=== PATIENT | male | born 1985 | race Hispanic/Latino ===

== ENCOUNTER 2019-04-04 12:21 | Inpatient (IN) | payer MEDICAID ==
[~2019-04-04] VITALS: Ht 170.2 cm; Wt 71.8 kg
[~2019-04-04 12:21] MED LIST: BACTRIM DS TAB1 EAC1 ORAL; BACTRIM-DS1 EA ORAL; CLINDAMYCIN HC300 MG ORAL; KEFLEX500 MG ORAL; NKM
--- NOTE | 2019-04-04 12:28 | NUR ---
SHANICE Nurse Note: PT. BROUGHT IN BY RA [address] PER EMS. PT HAS CP X 1 HR PRIOR TO ER ARRIVAL. PER EMS, THEY DID NOT ADMNISTER ANY MEDS EN ROUTE TO ER. PT. IS AAOX4. AMBULATORY. PT. POINTED HIS L CHEST WHEN ASKED WHERE HIS PAIN AT. NO S/S OF ACUTE DISTRESS NOTED AT THIS TIME. PT. ATTACHED TO CARDIAC MONITORING FOR CONTINUOUS MONITORING.
[2019-04-04] MEDS ORDERED: Ketorolac 30mg Inj IV ONE (12:30)
--- NOTE | 2019-04-04 12:30 | NUR ---
ED Nurse Note: PT IS NOTED TO BE HAVINNG MULTIPLE LUMPS ALL OVER HIS BODY
[2019-04-04 12:40] VITALS: BP 162/80
--- NOTE | 2019-04-04 12:45 | NUR ---
ED Nurse Note: CXR AT THE BEDSIDE
[2019-04-04 13:04] LABS: BASOPHILS % (AUTO) 1.3 % (0.0-2.0); EOSINOPHILS % (AUTO) 0.8 % (0.0-3.0); HEMATOCRIT 42.8 % (42.0-52.0); HEMOGLOBIN 14.1 G/DL (14.2-18.0); LYMPHOCYTES % (AUTO) 9.9 % (20.0-45.0); MEAN CORPUSCULAR VOLUME 84 FL (80-99); MONOCYTES % (AUTO) 11.7 % (1.0-10.0); NEUTROPHILS % (AUTO) 76.4 % (45.0-75.0); PLATELET COUNT 223 K/UL (150-450); RED BLOOD COUNT 5.06 M/UL (4.70-6.10); RED CELL DISTRIBUTION WIDTH 12.8 % (11.6-14.8); WHITE BLOOD COUNT 4.6 K/UL (4.8-10.8)
[2019-04-04 13:15] LABS: INR 1.1 (0.9-1.1)
[2019-04-04] MEDS ORDERED: Tubing IV Secondary IV ONE (13:16)
[2019-04-04] MEDS ORDERED: NS 275ml ONE (13:16)
[2019-04-04 13:20] LABS: ANION GAP 8 mmol/L (5-15); BLOOD UREA NITROGEN 15 mg/dL (7-18); CALCIUM 9.3 MG/DL (8.5-10.1); CARBON DIOXIDE 31 MMOL/L (21-32); CHLORIDE 102 MMOL/L (98-107); CREATININE 0.9 MG/DL (0.55-1.30); POTASSIUM 4.1 MMOL/L (3.5-5.1); SODIUM 141 MMOL/L (136-145)
[2019-04-04 13:32] LABS: ALANINE AMINOTRANSFERASE 27 U/L (12-78); ALBUMIN 3.7 G/DL (3.4-5.0); ALBUMIN/GLOBULIN RATIO 0.9 (1.0-2.7); ALKALINE PHOSPHATASE 82 U/L (46-116); ASPARTATE AMINO TRANSFERASE 29 U/L (15-37); BILIRUBIN,TOTAL 0.7 MG/DL (0.2-1.0); CREATINE KINASE 358 U/L (26-308)
--- NOTE | 2019-04-04 13:43 | NUR ---
ED Nurse Note: pt screaming out for Lt side chest pain. ERMD at bedside.
[2019-04-04] MEDS ORDERED: Morphine Sulfate 4mg/ml Inj (IV USE ONLY) IVP ONE (13:45)
[2019-04-04] MEDS ORDERED: DiphenhydrAMINE 50mg/ml Inj IVP ONE (13:45)
[2019-04-04] MEDS ORDERED: Metoclopramide 10mg/2ml Inj IVP ONE (13:45)
[2019-04-04 13:53] LABS: APPEARANCE,URINE CLEAR; BILIRUBIN, URINE NEGATIVE (NEGATIVE); GLUCOSE, URINE (UA) NEGATIVE (NEGATIVE); KETONES,URINE 1+ (NEGATIVE); LEUKOCYTE ESTERASE ,URINE 1+ (NEGATIVE); NITRITE,URINE NEGATIVE (NEGATIVE); PH,URINE 7 (4.5-8.0); PROTEIN,URINE 2+ (NEGATIVE); UROBILINOGEN,URINE NORMAL MG/DL (0.0-1.0)
[2019-04-04 13:54] LABS: COLOR,URINE YELLOW
[2019-04-04] MEDS ORDERED: Cefepime HCl 1 GM in D5W 55 ML IVPB ONE (14:00)
[2019-04-04] MEDS ORDERED: Vancomycin 1 GM in NS 275 ML IVPB ONE (14:00)
--- NOTE | 2019-04-04 14:26 | Diagnostic Imaging Report ---
Indication: Chest pain Technique: One view of the chest Comparison: none Findings: Lungs and pleural spaces are clear. Heart size is normal. Impression: No acute process
[2019-04-04 14:40] VITALS: BP 122/64
--- NOTE | 2019-04-04 15:06 | Emergency Room Report ---
History of Present Illness General Chief Complaint: Chest Pain Source: Patient, EMS Present Illness HPI Patient is brought by EMS. He summoned them because he was having left-sided chest pain. He says he is never had this pain before. It severe pressure and sharp left lateral chest. He denies it being pleuritic. He denies any trauma. He has been having chills but not documented any fevers. Pain level reported 4/10. The patient shoots methamphetamine. He also smokes THC. In the past he is used heroin also. He has been seen in the past with abscesses and drug abuse. He is uncertain if he has hepatitis C or HIV. Patient denies suicidal or homicidal ideation. No sore throat, palpitations, diarrhea, melena, dysuria, abdominal pain, shortness of breath, joint pain, visual changes, dizziness, headache. Allergies: Coded Allergies: No Known Allergies (Unverified , 12/29/12) Patient History Past Medical History: see triage record Social History: Reports: smoking, drug use - Heroin, methamphetamine Social History Narrative Not working -according to paramedics patient is homeless. Reviewed Nursing Documentation: PMH: Agreed; PSxH: Agreed Nursing Documentation-PMH Past Medical History: No Stated History Review of Systems All Other Systems: negative except mentioned in HPI Physical Exam Vital Signs Date Time Temp Pulse Resp B/P (MAP) Pulse Ox O2 Delivery O2 Flow Rate FiO2 04/04/19 12:15 97.9 114 19 162/80 (107) 99 04/04/19 12:21 Room Air Sp02 EP Interpretation: reviewed, normal General Appearance: alert, mild distress, thin Head: normocephalic, atraumatic Eyes: bilateral eye PERRL, bilateral eye EOMI, bilateral eye Scleral Injection ENT: moist mucus membranes Neck: full range of motion, supple, no meningismus Respiratory: chest non-tender, lungs clear, normal breath sounds Cardiovascular #1: regular rate, rhythm, no murmur, no rub, other - swelling UE Cardiovascular #2: 2+ radial (R), 2+ radial (L) Gastrointestinal: non tender, decreased bowel sounds, scaphoid Genitourinary: no CVA tenderness Musculoskeletal: back normal, tender - foreams, swelling - forearms Neurologic: alert, distal neuro normal, grossly normal Psychiatric: anxious Skin: other - Multiple abscesses and track hyl[place] with erythema more of L antecubital area Medical Decision Making Diagnostic Impression: Primary Impression: Chest pain Qualified Codes: R07.9 - Chest pain, unspecified Additional Impressions: Cellulitis Abscess Substance abuse ER Course Patient presents with obvious skin infections from IV drug use with chest pain. Differential includes acute myocardial infarction, pericarditis, subacute bacterial endocarditis, PE, septic embolus amongst others. Patient evaluated with EKG, chest x-ray and labs. Lactate and blood cultures performed. Patient treated for pain. We will have a low threshold for treating with IV antibiotics. EKG sinus tachycardia no acute changes. Chest x-ray no infiltrates. White count normal. Sed rate elevated. C-reactive protein elevated. Urine positive for opiates and amphetamines. Lactic acid normal. Patient started having increased episodes of pain. Treated with Reglan, Benadryl and morphine. Antibiotics begun to cover skin bacteria. Patient admitted to the hospital for observation and possibly longer course of IV antibiotics. Consider echocardiogram to exclude subacute bacterial endocarditis. Laboratory Tests Test 04/04/19 12:52 04/04/19 13:30 White Blood Count 4.6 K/UL (4.8-10.8) L Red Blood Count 5.06 M/UL (4.70-6.10) Hemoglobin 14.1 G/DL (14.2-18.0) L Hematocrit 42.8 % (42.0-52.0) Mean Corpuscular Volume 84 FL (80-99) Mean Corpuscular Hemoglobin 27.9 PG (27.0-31.0) Mean Corpuscular Hemoglobin Concent 33.0 G/DL (32.0-36.0) Red Cell Distribution Width 12.8 % (11.6-14.8) Platelet Count 223 K/UL (150-450) Mean Platelet Volume 7.2 FL (6.5-10.1) Neutrophils (%) (Auto) 76.4 % (45.0-75.0) H Lymphocytes (%) (Auto) 9.9 % (20.0-45.0) L Monocytes (%) (Auto) 11.7 % (1.0-10.0) H Eosinophils (%) (Auto) 0.8 % (0.0-3.0) Basophils (%) (Auto) 1.3 % (0.0-2.0) Erythrocyte Sedimentation Rate 19 MM/HR (0-15) H Prothrombin Time 11.4 SEC (9.30-11.50) Prothrombin Time INR 1.1 (0.9-1.1) PTT 30 SEC (23-33) Sodium Level 141 MMOL/L (136-145) Potassium Level 4.1 MMOL/L (3.5-5.1) Chloride Level 102 MMOL/L (98-107) Carbon Dioxide Level 31 MMOL/L (21-32) Anion Gap 8 mmol/L (5-15) Blood Urea Nitrogen 15 mg/dL (7-18) Creatinine 0.9 MG/DL (0.55-1.30) Estimate Glomerular Filtration Rate > 60 mL/min (>60) Glucose Level 103 MG/DL (74-106) Lactic Acid Level 1.30 mmol/L (0.4-2.0) Calcium Level 9.3 MG/DL (8.5-10.1) Magnesium Level 1.6 MG/DL (1.8-2.4) L Total Bilirubin 0.7 MG/DL (0.2-1.0) Aspartate Amino Transferase (AST) 29 U/L (15-37) Alanine Aminotransferase (ALT) 27 U/L (12-78) Alkaline Phosphatase 82 U/L (46-116) Total Creatine Kinase 358 U/L (26-308) H Troponin I 0.000 ng/mL (0.000-0.056) C-Reactive Protein, Quantitative 4.5 mg/dL (0.00-0.90) H Pro-B-Type Natriuretic Peptide 105 pg/mL (0-125) Total Protein 8.0 G/DL (6.4-8.2) Albumin 3.7 G/DL (3.4-5.0) Globulin 4.3 g/dL Albumin/Globulin Ratio 0.9 (1.0-2.7) L Lipase 100 U/L (73-393) Serum Alcohol < 3 mg/dL Urine Color Yellow Urine Appearance Clear Urine pH 7 (4.5-8.0) Urine Specific [place] 1.010 (1.005-1.035) Urine Protein 2+ (NEGATIVE) H Urine Glucose (UA) Negative (NEGATIVE) Urine Ketones 1+ (NEGATIVE) H Urine Blood Negative (NEGATIVE) Urine Nitrite Negative (NEGATIVE) Urine Bilirubin Negative (NEGATIVE) Urine Urobilinogen Normal MG/DL (0.0-1.0) Urine Leukocyte Esterase 1+ (NEGATIVE) H Urine RBC 0 /HPF (0 - 0) Urine WBC 2-4 /HPF (0 - 0) Urine Squamous Epithelial Cells Occasional /LPF Urine Bacteria Occasional /HPF (NONE) Urine Sperm Few /LPF (NONE) Urine Opiates Screen Positive (NEGATIVE) H Urine Barbiturates Screen Negative (NEGATIVE) Phencyclidine (PCP) Screen Negative (NEGATIVE) Urine Amphetamines Screen Positive (NEGATIVE) H Urine Benzodiazepines Screen Negative (NEGATIVE) Urine Cocaine Screen Negative (NEGATIVE) Urine Marijuana (THC) Screen Negative (NEGATIVE) EKG Diagnostic Results Rate: tachycardiac Rhythm: NSR ST Segments: no acute changes Rhythm Strip Diag. Results EP Interpretation: yes Rhythm: no PVC's, no ectopy, other - Sinus tachycardia Chest X-Ray Diagnostic Results Chest X-Ray Diagnostic Results : Chest X-Ray Ordered: Yes # of Views/Limited/Complete: 1 View Indication: Chest Pain EP Interpretation: Yes Interpretation: no consolidation, no effusion, no pneumothorax Impression: No acute disease Electronically Signed by: Electronically signed by Terrance Ashton MD Last Vital Signs Date Time Temp Pulse Resp B/P (MAP) Pulse Ox O2 Delivery O2 Flow Rate FiO2 04/04/19 17:44 Room Air 04/04/19 17:00 98.8 77 17 110/65 (80) 97 Status: improved Disposition: PLACE IN OBSERVATION Condition: Serious Scripts No Active Prescriptions or Reported Meds Referrals: NOT CHOSEN IPA/,REFERRING (PCP) Terrance Ashton MD Apr 04, 2019 15:06
--- NOTE | 2019-04-04 15:48 | NUR ---
ED Nurse Note: per registration, pt is not homeless.
--- NOTE | 2019-04-04 15:50 | NUR ---
ED Nurse Note: report given to JANEL Carlos
--- NOTE | 2019-04-04 16:09 | NUR ---
ED Nurse Note: pt left unit with 1 telemetry technician in stable condition.
--- NOTE | 2019-04-04 16:34 | NUR ---
NURSE NOTES: Patient is on the floor. Vitals stable.
[2019-04-04 17:00] VITALS: BP 110/65
--- NOTE | 2019-04-04 19:32 | NUR ---
HAND-OFF: Report given to JANEL Diaz.
--- NOTE | 2019-04-04 19:40 | NUR ---
NURSE NOTES: Pt. received from JANEL Carlos. Pt. AAOx4, on room air, no complaint of pain, no shortness of breath or indication of respiratory distress. Bed is low and locked, side rails x2 are up, and call light is in reach. Will continue to monitor.
[2019-04-04 20:00] VITALS: BP 119/65
[2019-04-04] MEDS: Heparin 5000 units/ml inj SUBQ SCH (20:45)
[2019-04-04] MEDS: Vancomycin 750mg/NS 275ml IVPB SCH ×2 (22:53)
[2019-04-04] MEDS: Piperacillin/Tazobactam 3.375 GM in NS 110 ML IVPB SCH (22:53)
[2019-04-05] VITALS: BP 120/67
[2019-04-05 04:00] VITALS: BP 119/72
[2019-04-05] MEDS: Piperacillin/Tazobactam 3.375 GM in NS 110 ML IVPB SCH ×2 (05:02→14:16)
[2019-04-05 07:11] LABS: BASOPHILS % (AUTO) 3.1 % (0.0-2.0); EOSINOPHILS % (AUTO) 0.5 % (0.0-3.0); HEMOGLOBIN 12.8 G/DL (14.2-18.0); LYMPHOCYTES % (AUTO) 21.9 % (20.0-45.0); MEAN CORPUSCULAR VOLUME 83 FL (80-99); MONOCYTES % (AUTO) 13.3 % (1.0-10.0); NEUTROPHILS % (AUTO) 61.3 % (45.0-75.0); PLATELET COUNT 153 K/UL (150-450); RED BLOOD COUNT 4.57 M/UL (4.70-6.10); RED CELL DISTRIBUTION WIDTH 13.2 % (11.6-14.8); WHITE BLOOD COUNT 4.5 K/UL (4.8-10.8)
[2019-04-05 07:12] LABS: ANION GAP 10 mmol/L (5-15); BLOOD UREA NITROGEN 15 mg/dL (7-18); CARBON DIOXIDE 26 MMOL/L (21-32); CHLORIDE 106 MMOL/L (98-107); POTASSIUM 3.9 MMOL/L (3.5-5.1); SODIUM 142 MMOL/L (136-145)
--- NOTE | 2019-04-05 07:26 | NUR ---
HAND-OFF: Report given to JANEL Carlos.
--- NOTE | 2019-04-05 07:35 | NUR ---
NURSE NOTES: Received patient on bed, awake. IV site intact and patent. Bed in low and locked position, call light in reach. No respiratory distress, patient denies pain. Room board updated, will continue to monitor.
[2019-04-05 08:00] VITALS: BP 114/63
[2019-04-05] MEDS: Vancomycin 750mg/NS 275ml IVPB SCH ×2 (08:58)
[2019-04-05] MEDS: Heparin 5000 units/ml inj SUBQ SCH ×2 (09:01→20:58)
[2019-04-05 12:00] VITALS: BP 120/73
--- NOTE | 2019-04-05 14:29 | NUR ---
CASE MANAGEMENT:INITIAL REVIEW 33 YR OLD MALE BIBA FROM STREET CC;CHEST PAIN SI;CHEST PAIN. CELLULITIS. ABSCESS. 97.8 125 20 162/80 99% RA WBC 4.6 CA 8 CREAT 358 CXR - NO ACUTE PROCESS IS;VANCO IV ZOSYN IV PROTONIX PO ADMITTED TO MED SURG
--- NOTE | 2019-04-05 14:43 | Diagnostic Imaging Report ---
Indication: Left forearm swelling Technique: Grayscale and duplex images of the area of swelling of the left forearm Comparison: none Findings: There is edema of the subcutaneous fat in the lateral forearm. At the mid-level forearm, within the area of edema, there is a focus of dense shadowing, peripheral to which is a small amount of fluid. Separate from this in the antecubital fossa, there is an area of heterogeneous hypoechogenicity which is bilobed, superficial moiety measuring approximately 2 x 0.7 cm, connecting to a deeper area which measures 2.2 x 2 x 0.5 cm. In aggregate, this area measures approximately 3 x 1.7 cm. Impression: Focus of dense shadowing within the left mid lateral forearm. This could represent a foreign body such as a retained needle. Recommend plain radiographs to better assess Bilobed collection in the antecubital fossa corresponding to raise superficial mass, as described above. This could represent a small abscess or small hematoma
--- NOTE | 2019-04-05 15:45 | Consultation ---
DATE OF CONSULTATION: 04/05/2019 INFECTIOUS DISEASES CONSULTATION CONSULTING PHYSICIAN: Eleazar Barillas M.D. REFERRING PHYSICIAN: Norberto Tripp M.D. REASON FOR CONSULTATION: Left arm possible infection. HISTORY OF PRESENTING ILLNESS: This is a 33-year-old gentleman with history of heroin use and IV drug use with methamphetamines who comes in with left-sided chest pain. He also had some chills without any fevers. He was found to have induration and swelling in the left arm and an Infectious Diseases consultation has been obtained for possible abscess. PAST MEDICAL HISTORY: No history of diabetes, hypertension, asthma, or any other medical illnesses. SOCIAL HISTORY: He is a smoker. He uses heroin and methamphetamine. He shoots methamphetamine. FAMILY HISTORY: Noncontributory. REVIEW OF SYSTEMS: CONSTITUTIONAL: No fever. He has chills. RESPIRATORY: No cough. No shortness of breath or chest pain currently. CARDIAC: No chest pain. No palpitations. No dizziness. No syncope. GASTROINTESTINAL: No nausea. No vomiting. No abdominal pain or diarrhea. MUSCULOSKELETAL: He denies any pain. MEDICATIONS: As an inpatient, he is on Protonix, vancomycin, Zosyn, subcutaneous heparin, Tylenol, Mylanta. ALLERGIES: No known drug allergies. PHYSICAL EXAMINATION: VITAL SIGNS: T-max of 101, temperature 98.7, pulse of 88, respiratory rate 20, blood pressure 119/72, O2 saturation of 95%. HEENT: Pupils equally reactive to light and accommodation. Mouth appears clean without thrush. NECK: Supple. No adenopathy. No JVD. CARDIOVASCULAR: Regular rate and rhythm. No murmurs. LUNGS: Clear to auscultation bilaterally. No crackles. No wheezes. ABDOMEN: Soft and nontender. No organomegaly. EXTREMITIES: No cyanosis, no clubbing, no edema. Left arm induration and swelling noted. LABORATORY AND DIAGNOSTIC DATA: White count 4.5, hemoglobin 12.8, hematocrit 38, MCV 83, platelet count of 153, neutrophils of 61%. Sodium 142, potassium 3.9, chloride 106, bicarb 25, BUN 15, creatinine 1, glucose 82, calcium of 8. Total bilirubin 0.7, AST 29, ALT 27, alkaline phosphatase 82. CK of 358. Troponin 0. C-reactive protein of 4.5. Total protein 8. Albumin 3.7. Lipase of 100. UA showing 2 to 4 white cells. Chest x-ray showing no acute process. ASSESSMENT: This is a 33-year-old gentleman with history of intravenous drug use with methamphetamine who comes in and is found to have. 1. Left arm possible abscess. 2. We would like to rule out HIV. 3. We would to rule out hepatitis A or B or C. PLAN: 1. Continue IV vancomycin and Zosyn. 2. We will order HIV testing. 3. We will order hepatitis A, B, and C testing. 4. We will order an ultrasound of the left arm. 5. We will follow up cultures. 6. We will order blood cultures. 7. We will order a 2D echocardiogram. 8. We will follow up cultures and adjust antibiotics accordingly. I would like to thank, Dr. Tripp, for this consultation. Eleazar Barillas M.D. DR: MAHSA JOB#: [id number] CC: Norberto Tripp M.D.; Fax#: [phone]
[2019-04-05 16:00] VITALS: BP 116/65
[2019-04-05] MEDS ORDERED: Vancomycin 1 GM in NS 275 ML IVPB SCH ×2 (16:00→20:00)
--- NOTE | 2019-04-05 18:00 | History and Physical Report ---
DATE OF ADMISSION: 04/04/2019 REASON FOR ADMISSION: Possible sepsis. HISTORY OF PRESENT ILLNESS: This is a 33-year-old male who is otherwise well. The patient was seen by the ER physician complaining of some left-sided chest pain, currently chest pain-free. The patient has been having some chills, and fevers. The patient does use IV methamphetamine and has used heroin in the past. The patient currently is otherwise stable. He is comfortable, appears nontoxic. PAST MEDICAL HISTORY: Essentially negative. MEDICATIONS: Essentially none. SOCIAL HISTORY: Noted. The patient does use IV drugs. Does smoke. The patient is otherwise homeless. REVIEW OF SYSTEMS: All 10 points reviewed and otherwise negative. The patient is stable and wants to be discharged. FAMILY HISTORY: Otherwise noncontributory as above. PHYSICAL EXAMINATION: VITAL SIGNS: Reviewed. T-max 101, otherwise vital signs stable. HEENT: Negative. NECK: Supple. LUNGS: Clear. CARDIAC: S1, S2. Regular rate and rhythm without murmurs. ABDOMEN: Soft, nontender. EXTREMITIES: No edema. SKIN: Reviewed. LABORATORY DATA: Reviewed. Chemistries reviewed. IMPRESSION: 1. Fever of unclear etiology, possible viral syndrome. 2. History of IV drug use. 3. Mildly elevated CK of no clear significance. RECOMMENDATIONS: 1. Supportive care. 2. Empiric antibiotics given. 3. ID evaluation for clearance and discharge planning. 4. Abstinence discussed and if stable will hope to discharge home with outpatient followup. Norberto Tripp M.D. DR: TAMIKO JOB#: [id number] CC: SARA
--- NOTE | 2019-04-05 19:30 | NUR ---
NURSE NOTES: Received report from JANEL Carlos. Patient sleeping. On room air, no signs of distress or labored breathing. IV intact, patent, and infusing IV antibiotics. Bed in lowest position with call light in reach. Side rails up x3. Will continue with plan of care.
--- NOTE | 2019-04-05 19:41 | NUR ---
HAND-OFF: Report given to JANEL Garcia.
[2019-04-05 20:00] VITALS: BP 119/63
[2019-04-05] MEDS: Vancomycin 1 GM in NS 275 ML IVPB SCH (20:10)
[2019-04-06] VITALS: BP 114/65
[2019-04-06] MEDS: Piperacillin/Tazobactam 3.375 GM in NS 110 ML IVPB SCH ×3 (00:54→16:33)
[2019-04-06 04:00] VITALS: BP 119/78
[2019-04-06] MEDS: Vancomycin 1 GM in NS 275 ML IVPB SCH ×2 (05:21→12:26)
--- NOTE | 2019-04-06 07:00 | NUR ---
Pt resting in bed, Awake, A/O x 4, calm, and cooperative, Denies pain, swelling and scabs noted Prakash UE, VS stable, tolerating diet well, no N/V. pt remains on IV Abx, voiding without difficulties, call light within reach, bed in low position, bed alarm on fall precaution maintained. will continue to monitor.
--- NOTE | 2019-04-06 07:35 | NUR ---
HAND-OFF: Report given to JANEL Najera.
[2019-04-06 08:00] VITALS: BP 129/79
[2019-04-06] MEDS: Heparin 5000 units/ml inj SUBQ SCH ×2 (08:33→22:05)
--- NOTE | 2019-04-06 11:27 | Infectious Diseases Prog Note ---
Assessment/Plan Assessment/Plan antibiotics : vancomycin iv, zosyn A 1. left arm abscess 2. left arm possible retained needle 3. history of injection drug use P 1. continue iv vancomycin, zosyn 2. will follow up cultures 3. suggest surgery evaluation 4. d/w Dr Tripp Subjective Constitutional: Denies: fever, chills Respiratory: Denies: shortness of breath, dry cough Gastrointestinal/Abdominal: Denies: nausea, vomiting, diarrhea Musculoskeletal: Reports: pain Allergies: Coded Allergies: No Known Allergies (Unverified , 12/29/12) Objective Vital Signs Last 24 Hour Vital Signs Date Time Temp Pulse Resp B/P (MAP) Pulse Ox O2 Delivery O2 Flow Rate FiO2 04/06/19 10:34 Room Air 04/06/19 08:00 99.5 84 18 129/79 (96) 96 04/06/19 04:00 98.4 79 20 119/78 (92) 96 04/06/19 00:00 98.8 88 20 114/65 (81) 96 04/05/19 21:00 Room Air 04/05/19 20:00 99.0 84 24 119/63 (81) 97 04/05/19 16:00 99.5 87 20 116/65 (82) 97 04/05/19 12:00 99.3 77 18 120/73 (89) 98 Height (Feet): 5 Height (Inches): 7.00 Weight (Pounds): 158 Respiratory/Chest: lungs clear Cardiovascular: normal rate, regular rhythm, no gallop/murmur Abdomen: soft, non tender Extremities: no edema, other - left forearm swelling, induration Microbiology Date/Time Source Procedure Growth Status 04/04/19 12:52 Blood Blood Culture - Preliminary NO GROWTH AFTER 24 HOURS Resulted 04/04/19 12:43 Blood Blood Culture - Preliminary NO GROWTH AFTER 24 HOURS Resulted 04/04/19 16:10 Nasal Nares Left MRSA Culture - Final NO METHICILLIN RESISTANT STAPH AUREUS... Complete 04/04/19 16:10 Rectum VRE Culture - Final NO VANCOMYCIN RESISTANT ENTEROCOCCUS ... Complete Laboratory Tests Test 04/05/19 14:15 Vancomycin Level Trough 9.3 ug/mL (5.0-12.0) Current Medications Medications (Trade) Dose Ordered Sig/Shayy Route PRN Reason Start Time Stop Time Status Last Admin Dose Admin Acetaminophen (Tylenol) 650 mg Q4H PRN ORAL Mild Pain/Temp > 100.5 04/04/19 17:00 05/04/19 16:59 04/05/19 05:03 Al Hydroxide/Mg Hydroxide (Mylanta) 30 ml Q4H PRN ORAL Constipation 04/04/19 17:00 05/04/19 16:59 Heparin Sodium (Porcine) (Heparin 5000 units/ml) 5,000 units EVERY 12 HOURS SUBQ 04/04/19 21:00 05/04/19 20:59 04/05/19 20:58 Pantoprazole (Protonix) 40 mg DAILY ORAL 04/05/19 09:00 05/05/19 08:59 04/06/19 08:30 Piperacillin Sod/ Tazobactam Sod 3.375 gm/Sodium Chloride 110 ml @ 27.5 mls/hr Q8HR@0000,0800,1600 IVPB 04/06/19 00:00 04/13/19 00:00 04/06/19 08:29 Vancomycin HCl (Vanco rx to dose) 1 ea DAILY PRN MISC Per rx protocol 04/04/19 17:00 05/04/19 16:59 Vancomycin HCl 1 gm/Sodium Chloride 275 ml @ 183.333 mls/hr Q8HR@0400,1200,2000 IVPB 04/05/19 20:00 04/10/19 19:59 04/06/19 05:21 Eleazar Barillas MD Apr 06, 2019 11:27
[2019-04-06 12:00] VITALS: BP 130/80
--- NOTE | 2019-04-06 12:03 | General Progress Note ---
Assessment/Plan Assessment/Plan: possible foreign body IV drug use fevers PLAN obtain CT surgical eval ID clearance impression, plan, and exam edited and reviewed in detail care discussed with RN Subjective Allergies: Coded Allergies: No Known Allergies (Unverified , 12/29/12) Subjective care noted d/w ID surgeon needed Objective Last 24 Hour Vital Signs Date Time Temp Pulse Resp B/P (MAP) Pulse Ox O2 Delivery O2 Flow Rate FiO2 04/06/19 10:34 Room Air 04/06/19 08:00 99.5 84 18 129/79 (96) 96 04/06/19 04:00 98.4 79 20 119/78 (92) 96 04/06/19 00:00 98.8 88 20 114/65 (81) 96 04/05/19 21:00 Room Air 04/05/19 20:00 99.0 84 24 119/63 (81) 97 04/05/19 16:00 99.5 87 20 116/65 (82) 97 04/05/19 12:00 99.3 77 18 120/73 (89) 98 Intake and Output 04/05/19 04/06/19 18:59 06:59 Intake Total 1105.006 ml 602.5 ml Output Total 500 ml Balance 605.006 ml 602.5 ml Intake Oral 720 ml 300 ml IV Total 385.006 ml 302.5 ml Output Urine Total 500 ml # Voids 4 Laboratory Tests 04/05/19 14:15: Vancomycin Level Trough 9.3 Height (Feet): 5 Height (Inches): 7.00 Weight (Pounds): 158 Objective WDWN NAD clear breath sounds bilaterally without rhonchi or wheeze [id number] without MRG NABS nontender no HSM no CCE nonfocal possible Norberto Camp MD Apr 06, 2019 12:03
--- NOTE | 2019-04-06 14:52 | Consultation ---
History of Present Illness General Date patient seen: Apr 06, 2019 Reason for Hospitalization: Chest Pain Present Illness HPI Is a 33-year-old male with extensive IV and recreational drug use who presented to [facility] complaining of chest pain. Patient states that recently is been using methamphetamine, heroin, THC and began to have some pleuritic pain. Admitted for further care and management. Surgery called to evaluate given the patient had multiple areas of possible abscesses or abnormal tissue from prior IV drug use. Patient seen, patient valuated, chart reviewed. Patient states that he use last only a few days ago and developed these raised areas with skin popping which become hardened tissue growth. No drainage. No fever chills. Labs noted. Allergies: Coded Allergies: No Known Allergies (Unverified , 12/29/12) Medication History No Active Prescriptions or Reported Meds Patient History History Provided By: Patient Healthcare decision maker SELF Resuscitation status Full Code Advanced Directive on File Past Medical/Surgical History Past Medical/Surgical History: (1) Drug abuse (2) Drug dependence (3) Abscess (4) Cellulitis (5) Sepsis (6) Substance abuse (7) Abscess (8) Chest pain Review of Systems Review of Symptoms General ROS: no weight loss or fever Psychological ROS: no depression or mood changes, no memory loss Ophthalmic ROS: no visual changes or eye irritation ENT ROS: no nasal congestion, hearing loss, dizziness Allergy and Immunology ROS: no allergic symptoms or urticaria Hematological and Lymphatic ROS: no swollen glands, unusual bleeding or bruising Endocrine ROS: no polyuria, polydipsia, weight changes, temperature intolerance Respiratory ROS: no cough, shortness of breath, or wheezing Cardiovascular ROS: no chest pain or dyspnea on exertion Gastrointestinal ROS: denies abdominal pain, bright red blood in stool. Musculoskeletal ROS: no myalgias or arthralgias Neurological ROS: no TIA or stroke symptoms Dermatological ROS: no new or changing skin lesions, rashes or pruritis Physical Exam Physical Exam General appearance: alert, cooperative, no distress, appears stated age Head: Normocephalic, without obvious abnormality, atraumatic Eyes: conjunctivae/corneas clear. PERRL, EOM's intact. Fundi benign Throat: Lips, mucosa, and tongue normal. Teeth and gums normal Neck: supple, symmetrical, trachea midline, no adenopathy, thyroid: not enlarged, symmetric, no tenderness/mass/nodules, no carotid bruit and no JVD Lungs: clear to auscultation bilaterally Heart: regular rate and rhythm, S1, S2 normal, no murmur, click, rub or gallop Abdomen: soft, non-tender. Bowel sounds normal. No masses, no organomegaly Extremities: Patient with multiple atypical wounds on bilateral upper extremities. On his left arm is swollen with some mild cellulitis and chronic skin changes and hypertrophy of tissues from multiple prior injections. Left arm with multiple soft areas from prior injections. No active drainage. No significant cellulitis. Possible small abscesses unknown. Pulses: 2+ and symmetric Skin: Skin color, texture, turgor normal. No rashes or lesions Neurologic: Grossly normal Last 24 Hour Vital Signs Date Time Temp Pulse Resp B/P (MAP) Pulse Ox O2 Delivery O2 Flow Rate FiO2 04/06/19 12:00 98.5 72 20 130/80 (97) 99 04/06/19 10:34 Room Air 04/06/19 08:00 99.5 84 18 129/79 (96) 96 04/06/19 04:00 98.4 79 20 119/78 (92) 96 04/06/19 00:00 98.8 88 20 114/65 (81) 96 04/05/19 21:00 Room Air 04/05/19 20:00 99.0 84 24 119/63 (81) 97 04/05/19 16:00 99.5 87 20 116/65 (82) 97 Intake and Output 04/05/19 04/06/19 19:00 07:00 Intake Total 1105.006 ml 602.5 ml Output Total 500 ml Balance 605.006 ml 602.5 ml Intake Oral 720 ml 300 ml IV Total 385.006 ml 302.5 ml Output Urine Total 500 ml # Voids 4 Height (Feet): 5 Height (Inches): 7.00 Weight (Pounds): 158 Medications Current Medications Medications (Trade) Dose Ordered Sig/Shayy Route PRN Reason Start Time Stop Time Status Last Admin Dose Admin Acetaminophen (Tylenol) 650 mg Q4H PRN ORAL Mild Pain/Temp > 100.5 04/04/19 17:00 05/04/19 16:59 04/05/19 05:03 Al Hydroxide/Mg Hydroxide (Mylanta) 30 ml Q4H PRN ORAL Constipation 04/04/19 17:00 05/04/19 16:59 Heparin Sodium (Porcine) (Heparin 5000 units/ml) 5,000 units EVERY 12 HOURS SUBQ 04/04/19 21:00 05/04/19 20:59 04/05/19 20:58 Pantoprazole (Protonix) 40 mg DAILY ORAL 04/05/19 09:00 05/05/19 08:59 04/06/19 08:30 Piperacillin Sod/ Tazobactam Sod 3.375 gm/Sodium Chloride 110 ml @ 27.5 mls/hr Q8HR@0000,0800,1600 IVPB 04/06/19 00:00 04/13/19 00:00 04/06/19 08:29 Vancomycin HCl (Vanco rx to dose) 1 ea DAILY PRN MISC Per rx protocol 04/04/19 17:00 05/04/19 16:59 Vancomycin HCl 1 gm/Sodium Chloride 275 ml @ 183.333 mls/hr Q8HR@0400,1200,2000 IVPB 04/05/19 20:00 04/10/19 19:59 04/06/19 12:26 Assessment/Plan Problem List: (1) Cellulitis (2) Abscess ICD Codes: L02.91 - Cutaneous abscess, unspecified SNOMED: 400345899 (3) Cellulitis of left upper extremity Assessment & Plan: This is a 33-year-old male with extensive IV and recreational drug use who presents with chest pain. Patient febrile, labs as above. Bilateral upper extremities with multiple atypical scars and wounds from prior injections. Extensive injection sites noted. Left arm with edema and chronic changes. Possible cellulitis. Findings: There is edema of the subcutaneous fat in the lateral forearm. At the mid-level forearm, within the area of edema, there is a focus of dense shadowing , peripheral to which is a small amount of fluid. Separate from this in the antecubital fossa, there is an area of heterogeneous hypoechogenicity which is bilobed, superficial moiety measuring approximately 2 x 0.7 cm, connecting to a deeper area which measures 2.2 x 2 x 0.5 cm. In aggregate, this area measures approximately 3 x 1.7 cm. Impression: Focus of dense shadowing within the left mid lateral forearm. This could represent a foreign body such as a retained needle. Recommend plain radiographs to better assess Bilobed collection in the antecubital fossa corresponding to raise superficial mass, as described above. This could represent a small abscess or small hematoma Multiple hard areas noted probably from prior injection. No active purulent drainage or signs of active infection/abscess identified on the left upper extremity. Small area on the right upper extremity from recent use could be either fluid collection or abscess does not look to have significant cellulitis around it. Continue with IV antibiotics per infectious disease plain films noted would not recommend going after A needle is would be very hard to findEspecially if not cause any problems Can consider on an elective outpatient setting Thank you will follow with recommendations ICD Codes: L03.114 - Cellulitis of left upper limb SNOMED: [id number] Rodger Loyola Apr 06, 2019 14:52
[2019-04-06 16:00] VITALS: BP 133/66
--- NOTE | 2019-04-06 19:10 | NUR ---
NURSE NOTES: Received report from JANEL Najera. Patient alert, mostly [place] speaking. On room air, no signs of distress or labored breathing. IV intact, patent, and infusing IV antibiotics. Bed in lowest position with call light in reach. Will continue with plan of care.
[2019-04-06 20:00] VITALS: BP 119/65
[2019-04-06] MEDS: Vancomycin 1.25gm/NS Premix 275 ML IVPB SCH (22:03)
[2019-04-07] VITALS: BP 120/69
[2019-04-07] MEDS: Piperacillin/Tazobactam 3.375 GM in NS 110 ML IVPB SCH ×2 (00:36→08:35)
[2019-04-07 04:00] VITALS: BP 109/61
[2019-04-07] MEDS: Vancomycin 1.25gm/NS Premix 275 ML IVPB SCH (05:01)
--- NOTE | 2019-04-07 07:06 | NUR ---
HAND-OFF: Report given to Jey Banerjee RN.
--- NOTE | 2019-04-07 07:43 | NUR ---
NURSE NOTES: PT RESTING IN BED, IN NO APPARENT DISTRESS AT THIS TIME. PT POINTS AT LEFT ARM AND STATES HE IT IS PAINFUL. DENIES NAUSEA OR VOMITING. NO OPEN WOUNDS NOTED ON LEFT ARM. BED IN LOWEST POSITION WITH BEDSIDE RAILS X2 RAISED. WILL CONTINUE TO MONITOR.
[2019-04-07 08:00] VITALS: BP 125/81
--- NOTE | 2019-04-07 08:07 | General Progress Note ---
Assessment/Plan Assessment/Plan: possible foreign body IV drug use fevers PLAN obtain CT surgical eval noted ID clearance pending Ct impression, plan, and exam edited and reviewed in detail care discussed with RN Subjective Allergies: Coded Allergies: No Known Allergies (Unverified , 12/29/12) Subjective care noted d/w ID surgeon recs noted Objective Last 24 Hour Vital Signs Date Time Temp Pulse Resp B/P (MAP) Pulse Ox O2 Delivery O2 Flow Rate FiO2 04/07/19 04:00 97.9 59 20 109/61 (77) 98 04/07/19 00:00 98.1 64 20 120/69 (86) 98 04/06/19 21:00 Room Air 04/06/19 20:00 98.8 70 18 119/65 (83) 96 04/06/19 16:00 98.9 75 20 133/66 (88) 98 04/06/19 12:00 98.5 72 20 130/80 (97) 99 04/06/19 10:34 Room Air Intake and Output 04/06/19 04/07/19 19:00 07:00 Intake Total 1196.666 ml Output Total 1400 ml 1000 ml Balance -203.334 ml -1000 ml Intake Oral 720 ml IV Total 476.666 ml Output Urine Total 1400 ml 1000 ml Laboratory Tests 04/06/19 19:00: Vancomycin Level Trough 9.5 Height (Feet): 5 Height (Inches): 7.00 Weight (Pounds): 158 Objective WDWN NAD clear breath sounds bilaterally without rhonchi or wheeze [id number] without MRG NABS nontender no HSM no CCE nonfocal possible Norberto Camp MD Apr 07, 2019 08:07
[2019-04-07] MEDS: Heparin 5000 units/ml inj SUBQ SCH (08:45)
--- NOTE | 2019-04-07 10:59 | NUR ---
NURSE NOTES: PT LEFT AMA. PT WAS DRESSED AND HEADING TOWARDS BACK EXIT ELEVATOR. RN ASKED PT WHERE HE WAS GOING AND PT STATED HE HAS TO LEAVE. PT REFUSED TO SIGN AMA PAPERWORK. PT REFUSED TO GO OVER BELONGINGS. RN REMOVED IV ACCESS. PT LEFT HOSPITAL ASSISTED BY SECURITY PERSONNEL.
--- NOTE | 2019-04-07 11:29 | NUR ---
CASE MANAGEMENT:REVIEW 04/06/19 SI;SEPSIS 99.5 87 24 114/63 97% RA WBC 4.5 CA 8.0 IS;VANCO MED SURG STATUS
--- NOTE | 2019-04-07 12:17 | Diagnostic Imaging Report ---
Indication: Left forearm swelling, abnormal recent sonogram Technique: No IV contrast, per referring physician request. Spiral acquisitions obtained through the left forearm Multiplanar reconstructions were generated. Total dose length product 200 mGycm. CTDIvol(s) 4 mGy. Radiation dose was minimized using automated exposure control Comparison: Reference made to forearm sonogram dated 04/05/2019 Findings: Assessment is limited in the absence of IV contrast. There is an ununited fracture of the ulna at the junction of the mid and distal thirds. This demonstrates overlying periosteal thickening, presumably callus, but fracture line bridges the entirety of the bone. Surface irregularity and small cysts are seen on either side of the fracture line. This nonetheless demonstrates normal bony alignment. There is circumferential edema of the subcutaneous fat of the forearm. This extends the length of the forearm but is more severe near the elbow. Posterolateral to the proximal to mid radial shaft, there is a small focus of soft tissue attenuation material which measures approximately 17 x 10 mm, at the center of which is a 5 mm diameter gas bubble. This probably accounts for the suspected foreign body seen on recent sonogram. This is located within the subcutaneous fat. In the antecubital fossa, there is a small bilobed focus of slightly lower than surrounding attenuation, with the superficial lobe measuring approximately 12 mm in diameter and the deeper lobe measuring approximately 14 mm in diameter. This in aggregate measures approximately 25 mm long axis dimension. This corresponds to the findings reported on recent sonogram. Whether this represents an abscess or an area of phlegmon is impossible to determine in the absence of IV contrast administration. No other definite focal abnormal collections are demonstrated to suggest abscess, but likewise assessment is limited in the absence of IV contrast demonstration. No definite osseous erosions are evident. The joint spaces are preserved. No other fractures Impression: Circumferential edema of the subcutaneous fat of the forearm and distal upper arm. Given stated clinical history most likely indicates cellulitis Small area of slightly lower attenuation in the antecubital fossa, which elevates the skin. This corresponds to the abnormality reported on recent sonogram. In the absence of IV contrast, unable to assess whether this represents an area of phlegmon or abscess Limited ability to evaluate for abscess elsewhere given the absence of IV contrast Small ovoid focus of soft tissue attenuation posterolateral to the proximal radius slightly deeper within the subcutaneous fat. A central discrete 5 mm gas bubble is present, which probably accounts for the echogenic focus on recent sonogram to represent a foreign body. Suspect that this represents an area of recent subcutaneous injection. The possibility of infection with a gas-forming organism as etiology of the gas should also be considered Apparent nonunion of distal radial shaft fracture. Irregularity of the fracture surfaces and small cysts raises possibility of a pseudoarthrosis. However, this is well aligned and fibrous union is also a possibility The CT scanner at [facility] is accredited by the [employer] and the scans are performed using protocols designed to limit radiation exposure to as low as reasonably achievable to attain images of sufficient resolution adequate for diagnostic evaluation.
--- NOTE | 2019-04-16 12:18 | Discharge Summary ---
Discharge Summary Discharge Summary _ DATE OF ADMISSION: 04/04/2019 DATE OF DISCHARGE: 04/07/2019 DISCHARGED BY: Dr. Tripp REASON FOR ADMISSION: 33 years old male with past medical history of abscesses due to intravenous drug abuse, presented to emergency department complaining of left-sided chest pain. Pain reported as sharp, pressure-like, in the left lateral chest. No trauma or injury. Patient reported chills , but no documented fevers. Pain rated at 4 out of 10 on a scale 1-10. Patient never had this kind of pain before. Patient admitted to using amphetamine, and in the past he was a heroin user. He also smokes marijuana. Upon evaluation patient was tachycardic with heart rate 114, blood pressure was 162/80. Laboratory work-up revealed mild leukopenia WBC 4.6 , stable hemoglobin and hematocrit . ESR 19. CRP 4.5. Lactic acid 1.3. Stable electrolytes and renal parameters . Magnesium 1.6. Troponin negative, pro BNP 105. EKG revealed sinus tachycardia no acute ischemic changes. Urine toxicology screen was positive for amphetamine and opiate, serum alcohol was less than 3. Urinalysis revealed no evidence of urinary tract infection, +2 protein. Chest x-ray revealed no acute cardiopulmonary pathology. Patient subsequently admitted for further management. CONSULTANTS: ID specialist Dr. Barillas surgery Dr. Loyola [facility] COURSE: Patient admitted to medical surgical floor. Patient developed fever the next day . ID specialist consulted and followed. Patient started on empiric antibiotics. X-ray of the left forearm revealed focus of dense shadowing , possibly foreign body / retained needle. Bilobed collection in the antecubital fossa corresponding to raised superficial mass. This could represent a small abscess or small hematoma Patient subsequently undergone CT scan of the left forearm due to abnormal forearm swelling , which revealed circumferential edema of the subcutaneous fat of the forearm and distal upper arm. Given stated clinical history most likely indicated cellulitis Blood culture initial and on were negative. Antibiotic provided as per ID recommendation . No leukocytosis. Fever resolved. ID specialist recommended surgery evaluation Surgeon seen and evaluated patient. Patient had multiply hard areas, probably from prior injection. No active purulent drainage or signs of active infection/sepsis identified on the left upper extremity. Patient also had small area on the right upper extremity from recent use , could be either fluid collection or abscess, but not look like significant cellulitis . Per surgeon , patient can be managed on elective outpatient setting. HIV test was nonreactive. Hepatitis panel revealed evidence of hepatitis C infection . Patient was counseled on abstinence from illicit street drugs. Patient was recommended outpatient treatment for hepatitis C. Renal parameters and electrolytes were closely monitored. Magnesium was corrected . Pain management was addressed as needed . Supportive care provided. DVT and GI prophylaxis provided. Patient clinically stabilized and was ready for discharge home. FINAL DIAGNOSIS Left arm abscess Cellulitis left forearm Left arm possible retained needle Fevers - resolved History of IV drug abuse Hepatitis C DISCHARGE MEDICATION List of medication was sent with patient DISCHARGE INSTRUCTIONS: Patient was discharged home. Follow-up with a primary care provider in 1 week. Patient was counseled on abstinence from illicit street drugs Patient was recommended outpatient treatment for hepatitis C. I have been assigned to dictate discharge summary for this account. I was not involved in the patient's management. Sharifa Jin NP Apr 16, 2019 12:18
== END 2019-04-07 11:02 | disposition left against medical advice (07) | DRG 603 ==
LOC: EDBD 12:21 → EMR 13:10 → OBSVTOIN 13:15 → 4E 13:15 → EDBEDREQ 15:44
DX: L02.414 Cutaneous abscess of left upper limb (principal); R07.9 Chest pain, unspecified; L03.114 Cellulitis of left upper limb; F15.10 Other stimulant abuse, uncomplicated; F11.10 Opioid abuse, uncomplicated; F17.200 Nicotine dependence, unspecified, uncomplicated; M79.5 Residual foreign body in soft tissue; B19.20 Unspecified viral hepatitis C without hepatic coma
CPT/HCPCS: 36415; 71045; 80048; 80053; 80202; 80307; 81003; 82550; 83605; 83690; 83735; 83880; 84484; 85025; 85610; 85651; 85730; 86140; 86703; 86705; 86706; 86708; 86803; 87040; 87081; 87340; 93306; 96365; 96366; 96367; 96368; 96372; 96375; 99285; G0480; J2765